=== PATIENT | female | born 1975 | race Caucasian/White ===

== ENCOUNTER 2018-03-01 18:31 | Observation (INO) | payer BC ==
[2018-03-01] MEDS ORDERED: NS 0.9% 1000 ML* 1,000 ML IV ONE ×2 (19:54→22:39)
[2018-03-01] MEDS ORDERED: Morphine INJ* 4 MG/ML 1 ML SYRINGE (NEW SYRINGE VERSION) IV ONE ×2 (19:54→21:52)
[2018-03-01 20:35] LABS: Urine Appearance Clear; Urine Blood 1+ (Negative); Urine Color Yellow; Urine Ketones Negative (Negative); Urine Protein Negative (Negative); Urine Red Blood Cell Trace(0-2/hpf) (Absent); Urine Specific Gravity 1.008 (1.010-1.030); Urine Urobilinogen Negative (Negative); Urine White Blood Cell Trace(0-5/hpf) (Absent)
[2018-03-01 20:41] LABS: ABS Basophils 0 10^3/ul (0-0.2); ABS Eosinophils 0.1 10^3/ul (0-0.6); ABS Lymphocytes 1.5 10^3/ul (1.0-4.8); ABS Monocytes 0.6 10^3/ul (0-0.8); ABS Neutrophils 7.4 10^3/ul (1.5-7.7); ABS Nucleated RBC 0 10^3/ul; Eosinophil % 0.6 % (0-6); Hematocrit 38 % (35-47); Lymphocyte % 15.5 % (25-47); Mean Corpuscular HGB Conc 34 g/dl (31-36); Mean Corpuscular Hemoglobin 30 pg (27-31); Mean Corpuscular Volume 87 fL (80-97); Mean Platelet Volume 7.6 um3 (7.4-10.4); Nucleated Red Blood Cells % 0; Platelet Count 203 10^3/ul (150-450); Red Blood Count 4.35 10^6/ul (4.00-5.40); Red Cell Distribution Width 12 % (10.5-15); White Blood Count 9.7 10^3/ul (3.5-10.8)
[2018-03-01 20:57] LABS: EGFR Non-African American 118.7 (>60)
[2018-03-01] MEDS ORDERED: Iohexol 300* (CONTRAST) 10 ML SDV IV ONE (21:14)
--- NOTE | 2018-03-01 22:31 | RAD ---
Indication: Right lower quadrant pain. Contrast: Administered 87.0 ml of OMNIPAQUE 300 mg/ml CT of the abdomen and pelvis was performed after oral and IV contrast administration. Coronal and sagittal reconstructed images were obtained. Comparison is made with previous exam dated January 24, 2009 The lung bases demonstrate no pleural fluid, nodules or masses. Heart is of normal size without evidence of pericardial effusion. A sebaceous cyst is noted in the dorsal soft tissue. Liver is normal in size. No focal lesions or intrahepatic duct dilatation is noted. Common duct is not dilated. The gallbladder demonstrates no calcified gallstones, pericholecystic fluid or wall thickening. Pancreas demonstrates no mass or pancreatic ductal dilatation. Spleen is normal in size. No adrenal masses are noted. The kidneys demonstrate symmetric nephrograms without focal lesions. The retroperitoneal lymphadenopathy is noted. No dilated loops of bowel are noted. Aorta and inferior vena cava are unremarkable. In the right colon there is infiltration of fat on the antimesenteric surface of the pericolonic fat. This is most suggestive of epiploic appendagitis or omental infarct. The appendix is visualized and is normal. No dilated loops of bowel are noted. The urinary bladder is unremarkable. No hernias are noted. A trace amount of fluid is noted surrounding the appendix. The urinary bladder is otherwise unremarkable. The bony structures are grossly unremarkable. IMPRESSION: Infiltration of fat on the antimesenteric surface of the right colon consistent with omental infarct or epiploic appendagitis. This is usually a self-limiting process. The appendix is visualized and appears to be of normal caliber.
[2018-03-01] MEDS ORDERED: HYDROmorphone INJ1* 1 MG/ML SYRINGE IV SLOW PU ONE (23:00)
--- NOTE | 2018-03-02 00:24 | RAD ---
EXAM: US Pelvis, Transvaginal EXAM DATE/TIME: 03/01/2018 11:49 PM CLINICAL HISTORY: 42 years old, female; Pain; Pelvic pain; Additional info: Ovarian torsion? TECHNIQUE: Real-time transvaginal pelvic ultrasound with image documentation. Transvaginal imaging was used for better evaluation of the endometrium and adnexa. COMPARISON: A/P W CT ABD/PEL W 03/01/2018 9:59 PM FINDINGS: Uterus/cervix: Anteverted anteflexed. Measures 7.6 x 5.1 x 3.7 cm (75 cc). No myometrial masses. Early proliferative phase endometrium measuring 0.4 cm. Right adnexa: Right ovary measures 2.3 x 2.2 x 1.5 cm (4 cc). Normal size and echogenicity with no masses. Normal follicles. Normal arterial and venous waveforms. Left adnexa: Left ovary measures 2.9 x 2.0 x 1.3 cm (4 cc). Normal size and echogenicity with no masses. Normal follicles. Normal arterial and venous waveforms. Free fluid: None. Bladder: Empty bladder. Bladder cannot be evaluated with this probe. IMPRESSION: Sonographically normal uterus and ovaries. No ovarian torsion. To contact [facility] with a general question: [facility] - [phone] For direct physician to physician contact: Physician Hotline - [phone] [facility] ([facility] Facility ID #[id number])
[2018-03-02] MEDS ORDERED: HYDROmorphone INJ1* 1 MG/ML SYRINGE IV SLOW PU ONE (01:09)
--- NOTE | 2018-03-02 01:09 | ED ---
Abdominal Pain/Female - HPI Summary HPI Summary: Patient is a 42-year-old female presenting to the ED with RLQ pain which began approximately 2 days ago. She states she feels the pain is worsening. Denies any nausea, vomiting, diarrhea, constipation. She has never had this type of pain in the past. History of ovarian cysts or kidney stones. She denied any pain to the bilateral flanks until after arrival into the ED. Now complaining of right flank and RLQ pain without radiation otherwise. She denies any fevers , sweats, chills. Pain is a 9/10, constant and stabbing. Denies any weakness in the bilateral extremities. No chance of . No abnormal vaginal discharge or bleeding. - History of Current Complaint Chief Complaint: EDAbdPain Stated Complaint: ABD PAIN LOWER RIGHT QUAD Time Seen by Provider: 03/01/18 18:36 Hx Obtained From: Patient ?: No Onset/Duration: Sudden Onset Timing: Constant Severity Initially: Severe Severity Currently: Severe Pain Intensity: 9 Pain Scale Used: 0-10 Numeric Location: Discrete At: RLQ Radiates: No Character: Sharp Aggravating Factor(s): Nothing Alleviating Factor(s): Nothing Associated Signs and Symptoms: Negative: Diaphoresis, Fever, Cough, Constipation , Blood in Stool, Urinary Symptoms, Nausea, Vomiting, Diarrhea - Risk Factors Ectopic Risk Factor: Negative Ovarian Torsion Risk Factor: Negative Allergies/Adverse Reactions: Allergies Allergy/AdvReac Type Severity Reaction Status Date / Time No Known Allergies Allergy Verified 03/07/15 08:18 Home Medications: Home Medications diphenhydrAMINE HCl [Sleep Aid] 50 mg PO BEDTIME 03/02/18 [History Confirmed ] raNITIdine HCl [Ranitidine HCl] 150 mg PO DAILY 03/02/18 [History Confirmed ] PMH/Surg Hx/FS Hx/Imm Hx Previously Healthy: Yes Endocrine/Hematology History: Denies: Hx Diabetes Cardiovascular History: Denies: Hx Hypertension, Hx Pacemaker/ICD Respiratory History: Denies: Hx Asthma Sensory History: Denies: Hx Hearing Aid Psychiatric History: Denies: Hx Panic Disorder - Surgical History Surgery Procedure, Year, and Place: BILATERAL AUGMENTATION '07; 2 C-SECTIONS 05 & 07; SINUS '; LABRAL HIP REPAIR; ABDOMINALPLASTY '; - Immunization History Hx Pertussis Vaccination: No Immunizations Up to Date: Yes Infectious Disease History: No Infectious Disease History: Denies: Traveled Outside the [place] in Last 30 Days - Social History Occupation: Employed Full-time Lives: With Family Alcohol Use: None Hx Substance Use: No Substance Use Type: Reports: None Hx Tobacco Use: No Smoking Status (MU): Never Smoked Tobacco Review of Systems - ROS Summary Review of Systems Summary: Patient name and doesn't work we another other concerns Constitutional: Negative Negative: Fever, Chills, Fatigue, Skin Diaphoresis Negative: Palpitations, Chest Pain Negative: Shortness Of Breath, Cough Positive: Abdominal Pain. Negative: Vomiting, Diarrhea, Nausea - , Genitourinary: Negative Positive: no symptoms reported, see HPI Negative: Arthralgia, Myalgia All Other Systems Reviewed And Are Negative: Yes Physical Exam Triage Information Reviewed: Yes Vital Signs On Initial Exam: Initial Vitals Temp Pulse Resp BP Pulse Ox 99.5 F 103 18 122/88 100 03/01/18 18:39 03/01/18 18:39 03/01/18 18:39 03/01/18 18:39 03/01/18 18:39 Vital Signs Reviewed: Yes Appearance: Positive: Well-Appearing, Well-Nourished Skin: Positive: Warm, Skin Color Reflects Adequate Perfusion Head/Face: Positive: Normal Head/Face Inspection Eyes: Positive: EOMI, LUIS, Conjunctiva Clear Neck: Positive: Supple, No Lymphadenopathy Respiratory/Lung Sounds: Positive: Clear to Auscultation, Breath Sounds Present Cardiovascular: Positive: RRR, Pulses are Symmetrical in both Upper and Lower Extremities Abdomen Description: Positive: McBur[place]'s Point Tenderness. Negative: CVA Tenderness (R), CVA Tenderness (L) Neurological: Positive: Sensory/Motor Intact, Alert, Oriented to Person Place, Time Psychiatric: Positive: Normal, Affect/Mood Appropriate AVPU Assessment: Alert Diagnostics - Vital Signs Vital Signs Temp Pulse Resp BP Pulse Ox 03/02/18 00:15 98.9 F 100 16 129/79 99 03/01/18 23:09 16 03/01/18 22:38 98.1 F 120 16 154/87 97 03/01/18 22:07 22 03/01/18 20:14 20 03/01/18 18:39 99.5 F 103 18 122/88 100 - Laboratory Lab Results: Lab Results 1003/01/18 03/01/18 Range/Units 20:25 20:30 20:30 WBC 9.7 (3.5-10.8) 10^3/ul RBC 4.35 (4.00-5.40) 10^6/ul Hgb 13.0 (12.0-16.0) g/dl Hct 38 (35-47) % MCV 87 (80-97) fL MCH 30 (27-31) pg MCHC 34 (31-36) g/dl RDW 12 (10.5-15) % Plt Count 203 (150-450) 10^3/ul MPV 7.6 (7.4-10.4) um3 Neut % (Auto) 77.2 (38-83) % Lymph % (Auto) 15.5 L (25-47) % Sevier % (Auto) 6.4 (0-7) % Eos % (Auto) 0.6 (0-6) % Baso % (Auto) 0.3 (0-2) % Absolute Neuts (auto) 7.4 (1.5-7.7) 10^3/ul Absolute Lymphs (auto) 1.5 (1.0-4.8) 10^3/ul Absolute Monos (auto) 0.6 (0-0.8) 10^3/ul Absolute Eos (auto) 0.1 (0-0.6) 10^3/ul Absolute Basos (auto) 0 (0-0.2) 10^3/ul Absolute Nucleated RBC 0 10^3/ul Nucleated RBC % 0 Sodium 137 (135-145) mmol/L Potassium 3.8 (3.5-5.0) mmol/L Chloride 105 (101-111) mmol/L Carbon Dioxide 26 (22-32) mmol/L Anion Gap 6 (2-11) mmol/L BUN 7 (6-24) mg/dL Creatinine 0.56 (0.51-0.95) mg/dL Est GFR ( Amer) 143.6 (>60) Est GFR (Non-Af Amer) 118.7 (>60) BUN/Creatinine Ratio 12.5 (8-20) Glucose 120 H (70-100) mg/dL Lactic Acid (0.5-2.0) mmol/L Calcium 8.9 (8.6-10.3) mg/dL Magnesium 1.8 L (1.9-2.7) mg/dL Total Bilirubin 0.40 (0.2-1.0) mg/dL AST 14 (13-39) U/L ALT 24 (7-52) U/L Alkaline Phosphatase 94 (34-104) U/L C-Reactive Protein 40.61 H (<8.01) mg/L Total Protein 7.0 (6.4-8.9) g/dL Albumin 4.5 (3.2-5.2) g/dL Globulin 2.5 (2-4) g/dL Albumin/Globulin Ratio 1.8 (1-3) Lipase 66 (11.0-82.0) U/L Beta HCG, Quant < 0.60 mIU/mL Urine Color Yellow Urine Appearance Clear Urine pH 7.0 (5-9) Ur Specific Elgin 1.008 L (1.010-1.030) Urine Protein Negative (Negative) Urine Ketones Negative (Negative) Urine Blood 1+ A (Negative) Urine Nitrate Negative (Negative) Urine Bilirubin Negative (Negative) Urine Urobilinogen Negative (Negative) Ur Leukocyte Esterase Negative (Negative) Urine WBC (Auto) Trace(0-5/hpf) (Absent) Urine RBC (Auto) Trace(0-2/hpf) (Absent) Ur Squamous Epith Cells Present A (Absent) Urine Bacteria 1+ A (Absent) Urine Glucose Negative (Negative) 03/01/18 Range/Units 20:30 WBC (3.5-10.8) 10^3/ul RBC (4.00-5.40) 10^6/ul Hgb (12.0-16.0) g/dl Hct (35-47) % MCV (80-97) fL MCH (27-31) pg MCHC (31-36) g/dl RDW (10.5-15) % Plt Count (150-450) 10^3/ul MPV (7.4-10.4) um3 Neut % (Auto) (38-83) % Lymph % (Auto) (25-47) % Sevier % (Auto) (0-7) % Eos % (Auto) (0-6) % Baso % (Auto) (0-2) % Absolute Neuts (auto) (1.5-7.7) 10^3/ul Absolute Lymphs (auto) (1.0-4.8) 10^3/ul Absolute Monos (auto) (0-0.8) 10^3/ul Absolute Eos (auto) (0-0.6) 10^3/ul Absolute Basos (auto) (0-0.2) 10^3/ul Absolute Nucleated RBC 10^3/ul Nucleated RBC % Sodium (135-145) mmol/L Potassium (3.5-5.0) mmol/L Chloride (101-111) mmol/L Carbon Dioxide (22-32) mmol/L Anion Gap (2-11) mmol/L BUN (6-24) mg/dL Creatinine (0.51-0.95) mg/dL Est GFR ( Amer) (>60) Est GFR (Non-Af Amer) (>60) BUN/Creatinine Ratio (8-20) Glucose (70-100) mg/dL Lactic Acid 1.2 (0.5-2.0) mmol/L Calcium (8.6-10.3) mg/dL Magnesium (1.9-2.7) mg/dL Total Bilirubin (0.2-1.0) mg/dL AST (13-39) U/L ALT (7-52) U/L Alkaline Phosphatase (34-104) U/L C-Reactive Protein (<8.01) mg/L Total Protein (6.4-8.9) g/dL Albumin (3.2-5.2) g/dL Globulin (2-4) g/dL Albumin/Globulin Ratio (1-3) Lipase (11.0-82.0) U/L Beta HCG, Quant mIU/mL Urine Color Urine Appearance Urine pH (5-9) Ur Specific Elgin (1.010-1.030) Urine Protein (Negative) Urine Ketones (Negative) Urine Blood (Negative) Urine Nitrate (Negative) Urine Bilirubin (Negative) Urine Urobilinogen (Negative) Ur Leukocyte Esterase (Negative) Urine WBC (Auto) (Absent) Urine RBC (Auto) (Absent) Ur Squamous Epith Cells (Absent) Urine Bacteria (Absent) Urine Glucose (Negative) Result Diagrams: 03/01/18 20:30 03/01/18 20:30 Lab Statement: Any lab studies that have been ordered have been reviewed, and results considered in the medical decision making process. Abdominal Pain Fem Course/Dx - Course Course Of Treatment: During the course of treatment, the patient is given a total of 16 mg of morphine over the course of approximately one hour with minimal relief. She states the stabbing pain was reduced, however the dull ache remained. After such, she is given 1 mg Dilaudid with moderate amount of relief. No antiemetics were given. CT abdomen and pelvis obtained: IMPRESSION : Infiltration of fat on the antimesenteric surface of the right colon. consistent with omental infarct or epiploic appendagitis. This is usually a self -limiting. process. The appendix is visualized and appears to be of normal caliber. Patient continues to complain of severe pain to the RLQ and is unable to lie flat. I am unable to rule out an ovarian origin. Ultrasound is ordered. IMPRESSION: Sonographically normal uterus and ovaries. No ovarian torsion. UA negative and no CVA tenderness bilaterally. At this point I am unable to get the patient's pain under control. Discussed case with Dr. Salgado who agrees to see patient in the ED. She will be admitted for intractable pain. - Diagnoses Differential Diagnosis: Positive: Appendicitis, Ectopic , Renal Colic Provider Diagnoses: Epiploic appendagitis Discharge - Sign-Out/Discharge Documenting (check all that apply): Patient Departure - Discharge Plan Condition: Fair Disposition: ADMITTED TO [facility] Referrals: Nawaf Miller MD [Primary Care Provider] - - Billing Disposition and Condition Condition: FAIR Disposition: Admitted to [facility]
[2018-03-02] MEDS ORDERED: HYDROmorphone INJ* 1 MG/ML CARPUJECT SYRINGE IV SLOW PU PRN (02:02)
[2018-03-02] MEDS ORDERED: NS 0.9% 1000 ML* 1,000 ML IV SCH (02:15)
[2018-03-02] MEDS ORDERED: Magnesium Sulfate 2 GM IV* 2 GM/50 ML BAG IVPB ONE (02:33)
[2018-03-02] MEDS: Acetaminophen TAB* 325 MG PO PRN (03:38)
[2018-03-02] MEDS ORDERED: Al Hydrox/Mg Hydrox/Simet LIQ* 30 ML UDC PO PRN (04:49)
[2018-03-02] MEDS: Famotidine TAB* 20 MG PO SCH ×3 (04:54→20:55)
--- NOTE | 2018-03-02 06:25 | HP ---
CC: Dr. Nawfa Miller HISTORY AND PHYSICAL: DATE OF ADMISSION: 03/02/18 TIME OF EVALUATION: 1:55 a.m. PRIMARY CARE PROVIDER: Dr. Nawaf Miller. CHIEF COMPLAINT: Abdominal pain. HISTORY OF PRESENT ILLNESS: Ms. Aleman is a 42-year-old lady with a past medical history of GERD that presented to the emergency room with complaints of right lower quadrant pain. She states she was in her usual state of health and yesterday around 5 in the morning when she woke up to come to work, she started to have some right lower quadrant pain. 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 As the pain continued to be severe and also due to the location, she was concerned of appendicitis. So, she came to the emergency room for further evaluation. She denies fever, chills, nausea, vomiting, diarrhea. She is constipated, but this is not unusual for her. She describes the pain as a sharp 8/10 in the right lower quadrant and earlier today, there was some radiation to the right flank, but this is now improved. In the emergency room, she received 2 doses of morphine 8 mg and 2 doses of Dilaudid 1 mg and as the pain was so severe, the hospitalist service was consulted for admission for intractable abdominal pain. PAST MEDICAL HISTORY: 1. GERD. 2. Seasonal allergies. PAST SURGICAL HISTORY: 1. Status post 2 C-sections. 2. Status post abdominoplasty. MEDICATIONS: 1. Ranitidine 150 mg p.o. daily. 2. Benadryl 50 mg p.o. at bedtime. ALLERGIES: No known drug allergies. FAMILY HISTORY: Mother has a history of hypertension. SOCIAL HISTORY: No history of drug or tobacco use. 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 Surrogate decision maker is her , Ham Aleman, phone number is [phone]. PHYSICAL EXAMINATION GENERAL: The patient is a young lady, lying in bed, in no acute distress. VITAL SIGNS: Temperature 98.9, heart rate is 100, respiratory rate is 16, oxygen saturation 99% on room air, blood pressure is 129/79. CHEST: Breath sounds present bilaterally with no added sounds. CVS: Normal S1, S2. Regular rate and rhythm. ABDOMEN: Soft with moderate tenderness in the right lower quadrant. No guarding, no rebound. Bowel sounds are present, but this examination was done after the patient received considerable amount of pain medication. EXTREMITIES: No edema. NEUROLOGIC: She is alert and oriented x3, able to move all 4 extremities. DIAGNOSTIC STUDIES/LAB DATA: The patient had a CBC that showed a WBC of 9.7, hemoglobin of 13, hematocrit of 38, platelets of 283 with 77% neutrophils. Chemistry showed a sodium of 137, potassium 3.8, chloride of 105, bicarb of 26, BUN of 7, creatinine 0.5, glucose of 120, lactic acid of 1.2, calcium of 8.9, magnesium of 1.8. LFTs were normal. CRP is 40. HCG was less than 0.6. Lipase 66. Urinalysis showed 1+ blood, squamous epithelial cells (the patient is having her period). CT of the abdomen and pelvis with contrast showed infiltration of fat on the antimesenteric surface of the right colon consistent with omental infarct or epiploic appendagitis. This is usually a self-limiting process. The appendix is visualized. It appears to be of normal caliber. Transvaginal ultrasound showed sonographically normal uterus and ovaries. No ovarian torsion. ASSESSMENT AND PLAN: Ms. Aleman is a 42-year-old lady with a past medical history of gastroesophageal reflux disease that presented to the emergency room with complaints of severe abdominal pain, found to have omental infarct. 1. Abdominal pain. The etiology at this point appears to be an omental infarct. The patient did have some radiation of the pain to her flank and some blood in the urine, but she is having her period. If her pain persists, we could do a renal ultrasound to look for kidney stones, but at this point, the etiology of her pain appears to be the omental infarct. She will be admitted as an observation to the medical floor and we are going to continue pain management. Although her pain is severe, the omental infarcts are usually benign and self-limited condition. So, we are going to provide symptomatic treatment to get her through it. The patient is tachycardic likely secondary to pain. She has no other signs of infection, but we will continue to monitor. 2. Gastroesophageal reflux disease. We will continue H2 swati. 3. DVT prophylaxis. The patient has a score of 1 on DVT Prophylaxis Risk Assessment Guide and she will have SCDs. 4. Code status is full. TIME SPENT: Approximately 35 minutes was spent with the patient in interview, medical records review, physical examination to complete this admission; more than half this time was spent [id number] with the patient in coordination of care. [id number]/CPS #: [id number] DESHAWN
[2018-03-02] MEDS: HYDROmorphone INJ1* 1 MG/ML SYRINGE IV SLOW PU PRN ×5 (06:31→23:38)
[2018-03-02] MEDS: Ondansetron INJ* 2 MG/ML VIAL IV PRN ×5 (06:39→23:38)
[2018-03-02 07:06] LABS: ABS Basophils 0 10^3/ul (0-0.2); ABS Eosinophils 0 10^3/ul (0-0.6); ABS Lymphocytes 1.2 10^3/ul (1.0-4.8); ABS Monocytes 0.6 10^3/ul (0-0.8); ABS Neutrophils 6.1 10^3/ul (1.5-7.7); ABS Nucleated RBC 0 10^3/ul; Eosinophil % 0.4 % (0-6); Hematocrit 33 % (35-47); Hemoglobin 11.5 g/dl (12.0-16.0); Lymphocyte % 15.5 % (25-47); Mean Corpuscular HGB Conc 35 g/dl (31-36); Mean Corpuscular Hemoglobin 30 pg (27-31); Mean Corpuscular Volume 86 fL (80-97); Mean Platelet Volume 7.5 um3 (7.4-10.4); Nucleated Red Blood Cells % 0.1; Platelet Count 166 10^3/ul (150-450); Red Blood Count 3.82 10^6/ul (4.00-5.40); Red Cell Distribution Width 12 % (10.5-15)
[2018-03-02] MEDS ORDERED: Ketorolac INJ* 30 MG/ML 1 ML VIAL IV PUSH ONE (11:00)
--- NOTE | 2018-03-02 11:13 | PN ---
Subjective Date of Service: 03/02/18 Interval History: continues to c/o point tenderness of RLQ , denies pain in any other location, does report nausea, denies vomiting. Denies chest pain or shortness of breath. Denies diarrhea. Family History: Unchanged from Admission Social History: Unchanged from Admission Past Medical History: Unchanged from Admission Objective Active Medications: Acetaminophen (Tylenol Tab*) 650 mg PO Q6H PRN PRN Reason: pain/fever Last Admin: 03/02/18 03:38 Dose: 650 mg Al Hydrox/Mg Hydrox/Simethicone (Maalox Plus*) 30 ml PO Q6H PRN PRN Reason: HEARTBURN Famotidine (Pepcid Tab*) 20 mg PO BEDTIME [facility] Last Admin: 03/02/18 05:12 Dose: 20 mg Hydromorphone HCl (Dilaudid Inj1s*) 1 mg IV SLOW PU Q4H PRN PRN Reason: SEVERE PAIN Last Admin: 03/02/18 10:58 Dose: 1 mg Sodium Chloride (Ns 0.9% 1000 Ml*) 1,000 mls @ 125 mls/hr IV PER RATE [facility] Last Admin: 03/02/18 03:26 Dose: 125 mls/hr Ondansetron HCl (Zofran Inj*) 4 mg IV Q4H PRN PRN Reason: NAUSEA Vital Signs - 8 hr 03/02/18 03/02/18 03/02/18 03:11 06:31 07:31 Temperature 97.9 F Pulse Rate 105 Respiratory 20 23 18 Rate Blood Pressure 123/69 (mmHg) O2 Sat by Pulse 99 Oximetry 03/02/18 03/02/18 07:35 10:58 Temperature 97.5 F Pulse Rate 83 Respiratory 18 16 Rate Blood Pressure 113/46 (mmHg) O2 Sat by Pulse 100 Oximetry Oxygen Devices in Use Now: None Appearance: appears uncomfortable resting in bed , alert Eyes: No Scleral Icterus Ears/Nose/Mouth/Throat: Clear Oropharnyx, Mucous Membranes Moist Neck: NL Appearance and Movements; NL JVP, Trachea Midline Respiratory: Symmetrical Chest Expansion and Respiratory Effort, Clear to Auscultation Cardiovascular: NL Sounds; No Murmurs; No JVD, No Edema Abdominal: - - point tenderness noted to RLQ , aching, pain, BS + x 4 , abd soft to palpation . Extremities: No Edema, No Clubbing, Cyanosis Skin: No Rash or Ulcers Neurological: Alert and Oriented x 3 Nutrition: Taking PO's Result Diagrams: 03/02/18 06:53 03/02/18 06:53 Additional Lab and Data: Lab Results 03/01/18 03/01/18 03/01/18 Range/Units 20:25 20:30 20:30 WBC 9.7 (3.5-10.8) 10^3/ul RBC 4.35 (4.00-5.40) 10^6/ul Hgb 13.0 (12.0-16.0) g/dl Hct 38 (35-47) % MCV 87 (80-97) fL MCH 30 (27-31) pg MCHC 34 (31-36) g/dl RDW 12 (10.5-15) % Plt Count 203 (150-450) 10^3/ul MPV 7.6 (7.4-10.4) um3 Neut % (Auto) 77.2 (38-83) % Lymph % (Auto) 15.5 L (25-47) % [place] % (Auto) 6.4 (0-7) % Eos % (Auto) 0.6 (0-6) % Baso % (Auto) 0.3 (0-2) % Absolute Neuts (auto) 7.4 (1.5-7.7) 10^3/ul Absolute Lymphs (auto) 1.5 (1.0-4.8) 10^3/ul Absolute Monos (auto) 0.6 (0-0.8) 10^3/ul Absolute Eos (auto) 0.1 (0-0.6) 10^3/ul Absolute Basos (auto) 0 (0-0.2) 10^3/ul Absolute Nucleated RBC 0 10^3/ul Nucleated RBC % 0 Sodium 137 (135-145) mmol/L Potassium 3.8 (3.5-5.0) mmol/L Chloride 105 (101-111) mmol/L Carbon Dioxide 26 (22-32) mmol/L Anion Gap 6 (2-11) mmol/L BUN 7 (6-24) mg/dL Creatinine 0.56 (0.51-0.95) mg/dL Est GFR ( Amer) 143.6 (>60) Est GFR (Non-Af Amer) 118.7 (>60) BUN/Creatinine Ratio 12.5 (8-20) Glucose 120 H (70-100) mg/dL Lactic Acid (0.5-2.0) mmol/L Calcium 8.9 (8.6-10.3) mg/dL Magnesium 1.8 L (1.9-2.7) mg/dL Total Bilirubin 0.40 (0.2-1.0) mg/dL AST 14 (13-39) U/L ALT 24 (7-52) U/L Alkaline Phosphatase 94 (34-104) U/L C-Reactive Protein 40.61 H (<8.01) mg/L Total Protein 7.0 (6.4-8.9) g/dL Albumin 4.5 (3.2-5.2) g/dL Globulin 2.5 (2-4) g/dL Albumin/Globulin Ratio 1.8 (1-3) Lipase 66 (11.0-82.0) U/L Beta HCG, Quant < 0.60 mIU/mL Urine Color Yellow Urine Appearance Clear Urine pH 7.0 (5-9) Ur Specific [place] 1.008 L (1.010-1.030) Urine Protein Negative (Negative) Urine Ketones Negative (Negative) Urine Blood 1+ A (Negative) Urine Nitrate Negative (Negative) Urine Bilirubin Negative (Negative) Urine Urobilinogen Negative (Negative) Ur Leukocyte Esterase Negative (Negative) Urine WBC (Auto) Trace(0-5/hpf) (Absent) Urine RBC (Auto) Trace(0-2/hpf) (Absent) Ur Squamous Epith Cells Present A (Absent) Urine Bacteria 1+ A (Absent) Urine Glucose Negative (Negative) 03/01/18 Range/Units 20:30 WBC (3.5-10.8) 10^3/ul RBC (4.00-5.40) 10^6/ul Hgb (12.0-16.0) g/dl Hct (35-47) % MCV (80-97) fL MCH (27-31) pg MCHC (31-36) g/dl RDW (10.5-15) % Plt Count (150-450) 10^3/ul MPV (7.4-10.4) um3 Neut % (Auto) (38-83) % Lymph % (Auto) (25-47) % [place] % (Auto) (0-7) % Eos % (Auto) (0-6) % Baso % (Auto) (0-2) % Absolute Neuts (auto) (1.5-7.7) 10^3/ul Absolute Lymphs (auto) (1.0-4.8) 10^3/ul Absolute Monos (auto) (0-0.8) 10^3/ul Absolute Eos (auto) (0-0.6) 10^3/ul Absolute Basos (auto) (0-0.2) 10^3/ul Absolute Nucleated RBC 10^3/ul Nucleated RBC % Sodium (135-145) mmol/L Potassium (3.5-5.0) mmol/L Chloride (101-111) mmol/L Carbon Dioxide (22-32) mmol/L Anion Gap (2-11) mmol/L BUN (6-24) mg/dL Creatinine (0.51-0.95) mg/dL Est GFR ( Amer) (>60) Est GFR (Non-Af Amer) (>60) BUN/Creatinine Ratio (8-20) Glucose (70-100) mg/dL Lactic Acid 1.2 (0.5-2.0) mmol/L Calcium (8.6-10.3) mg/dL Magnesium (1.9-2.7) mg/dL Total Bilirubin (0.2-1.0) mg/dL AST (13-39) U/L ALT (7-52) U/L Alkaline Phosphatase (34-104) U/L C-Reactive Protein (<8.01) mg/L Total Protein (6.4-8.9) g/dL Albumin (3.2-5.2) g/dL Globulin (2-4) g/dL Albumin/Globulin Ratio (1-3) Lipase (11.0-82.0) U/L Beta HCG, Quant mIU/mL Urine Color Urine Appearance Urine pH (5-9) Ur Specific [place] (1.010-1.030) Urine Protein (Negative) Urine Ketones (Negative) Urine Blood (Negative) Urine Nitrate (Negative) Urine Bilirubin (Negative) Urine Urobilinogen (Negative) Ur Leukocyte Esterase (Negative) Urine WBC (Auto) (Absent) Urine RBC (Auto) (Absent) Ur Squamous Epith Cells (Absent) Urine Bacteria (Absent) Urine Glucose (Negative) Assess/Plan/Problems-Billing Assessment: Ms. Faye is a 42 y.o female that presented with RLQ , found to have omental infarct on the CT. admitted for pain control and supportive care - Patient Problems (1) Abdominal pain Current Visit: Yes Status: Acute Code(s): R10.9 - UNSPECIFIED ABDOMINAL PAIN SNOMED Code(s): 27034915 Comment: CT shows:Infiltration of fat on the antimesenteric surface of the right colon consistent with omental infarct or epiploic appendagitis. This is usually a self -limiting process. The appendix is visualized and appears to be of normal caliber. - Will give a dose of toradol to assist with pain managment - will continue hydromorphone as needed for pain - will repeat cbc and crp in the AM - continue warm pack as needed for comfort. (2) DVT prophylaxis Current Visit: Yes Status: Acute Code(s): NDK7282 - SNOMED Code(s): 369036338 Comment: ambulate (3) Full code status Current Visit: Yes Status: Acute Code(s): Z78.9 - OTHER SPECIFIED HEALTH STATUS SNOMED Code(s): 019337174 Status and Disposition: obv
[2018-03-02] MEDS: Ketorolac INJ* 30 MG/ML 1 ML VIAL IV PUSH PRN (21:01)
[2018-03-03] MEDS: HYDROmorphone INJ1* 1 MG/ML SYRINGE IV SLOW PU PRN ×2 (03:45→08:20)
[2018-03-03] MEDS: Ondansetron INJ* 2 MG/ML VIAL IV PRN ×2 (03:45→08:12)
[2018-03-03 07:04] LABS: ABS Basophils 0 10^3/ul (0-0.2); ABS Eosinophils 0.1 10^3/ul (0-0.6); ABS Lymphocytes 1.1 10^3/ul (1.0-4.8); ABS Monocytes 0.6 10^3/ul (0-0.8); ABS Neutrophils 5.4 10^3/ul (1.5-7.7); ABS Nucleated RBC 0 10^3/ul; Eosinophil % 0.9 % (0-6); Hematocrit 32 % (35-47); Hemoglobin 11.2 g/dl (12.0-16.0); Lymphocyte % 14.8 % (25-47); Mean Corpuscular HGB Conc 35 g/dl (31-36); Mean Corpuscular Hemoglobin 31 pg (27-31); Mean Corpuscular Volume 87 fL (80-97); Mean Platelet Volume 7.8 um3 (7.4-10.4); Nucleated Red Blood Cells % 0.1; Platelet Count 163 10^3/ul (150-450); Red Blood Count 3.67 10^6/ul (4.00-5.40); Red Cell Distribution Width 12 % (10.5-15); White Blood Count 7.1 10^3/ul (3.5-10.8)
[2018-03-03 07:10] LABS: EGFR Non-African American 123.8 (>60)
[2018-03-03] MEDS: Ketorolac INJ* 30 MG/ML 1 ML VIAL IV PUSH PRN (08:21)
[2018-03-03] MEDS ORDERED: oxyCODONE/Acetamin 5/325 MG* TAB PO PRN (11:16)
[2018-03-03] MEDS: Acetaminophen TAB* 325 MG PO PRN (12:26)
[2018-03-03] MEDS ORDERED: Ibuprofen TAB* 600 MG PO PRN (14:00)
--- NOTE | 2018-03-03 15:46 | PN ---
Subjective Date of Service: 03/03/18 Interval History: reports pain is much improved with Toradol. continues to have tenderness to RLQ with palpation. able to tolerate po solid foods. Denies chest pain or shortness of breath. Denies abd pain , n/v/d. denies fever or chills Family History: Unchanged from Admission Social History: Unchanged from Admission Past Medical History: Unchanged from Admission Objective Active Medications: Acetaminophen (Tylenol Tab*) 650 mg PO Q6H PRN PRN Reason: pain/fever Last Admin: 03/03/18 12:26 Dose: 650 mg Al Hydrox/Mg Hydrox/Simethicone (Maalox Plus*) 30 ml PO Q6H PRN PRN Reason: HEARTBURN Famotidine (Pepcid Tab*) 20 mg PO BEDTIME [facility] Last Admin: 03/02/18 20:55 Dose: 20 mg Ibuprofen (Motrin Tab*) 600 mg PO Q6H PRN PRN Reason: PAIN Ondansetron HCl (Zofran Inj*) 4 mg IV Q4H PRN PRN Reason: NAUSEA Last Admin: 03/03/18 08:12 Dose: 4 mg Oxycodone/Acetaminophen (Percocet 5/325 Tab*) 1 tab PO Q6H PRN PRN Reason: PAIN Last Admin: 03/03/18 12:16 Dose: 1 tab Vital Signs - 8 hr 03/03/18 03/03/18 03/03/18 07:50 08:00 08:20 Temperature 98.1 F Pulse Rate 83 Respiratory 16 18 15 Rate Blood Pressure 102/62 (mmHg) O2 Sat by Pulse 99 Oximetry 03/03/18 03/03/18 11:12 12:16 Temperature 98.2 F Pulse Rate 77 Respiratory 18 18 Rate Blood Pressure 115/73 (mmHg) O2 Sat by Pulse 100 Oximetry Oxygen Devices in Use Now: None Appearance: alert , sitting in bed , no acute distress Eyes: No Scleral Icterus Ears/Nose/Mouth/Throat: Clear Oropharnyx, Mucous Membranes Moist Neck: NL Appearance and Movements; NL JVP, Trachea Midline Respiratory: Symmetrical Chest Expansion and Respiratory Effort, Clear to Auscultation Cardiovascular: NL Sounds; No Murmurs; No JVD, No Edema Abdominal: - - NL sounds, Tenderness to RLQ, no distention , BS + x 4 Extremities: No Edema, No Clubbing, Cyanosis Skin: No Rash or Ulcers Neurological: Alert and Oriented x 3 Nutrition: Taking PO's Result Diagrams: 03/03/18 06:26 03/03/18 06:26 Additional Lab and Data: Lab Results 03/01/18 03/01/18 03/01/18 Range/Units 20:25 20:30 20:30 WBC 9.7 (3.5-10.8) 10^3/ul RBC 4.35 (4.00-5.40) 10^6/ul Hgb 13.0 (12.0-16.0) g/dl Hct 38 (35-47) % MCV 87 (80-97) fL MCH 30 (27-31) pg MCHC 34 (31-36) g/dl RDW 12 (10.5-15) % Plt Count 203 (150-450) 10^3/ul MPV 7.6 (7.4-10.4) um3 Neut % (Auto) 77.2 (38-83) % Lymph % (Auto) 15.5 L (25-47) % [place] % (Auto) 6.4 (0-7) % Eos % (Auto) 0.6 (0-6) % Baso % (Auto) 0.3 (0-2) % Absolute Neuts (auto) 7.4 (1.5-7.7) 10^3/ul Absolute Lymphs (auto) 1.5 (1.0-4.8) 10^3/ul Absolute Monos (auto) 0.6 (0-0.8) 10^3/ul Absolute Eos (auto) 0.1 (0-0.6) 10^3/ul Absolute Basos (auto) 0 (0-0.2) 10^3/ul Absolute Nucleated RBC 0 10^3/ul Nucleated RBC % 0 Sodium 137 (135-145) mmol/L Potassium 3.8 (3.5-5.0) mmol/L Chloride 105 (101-111) mmol/L Carbon Dioxide 26 (22-32) mmol/L Anion Gap 6 (2-11) mmol/L BUN 7 (6-24) mg/dL Creatinine 0.56 (0.51-0.95) mg/dL Est GFR ( Amer) 143.6 (>60) Est GFR (Non-Af Amer) 118.7 (>60) BUN/Creatinine Ratio 12.5 (8-20) Glucose 120 H (70-100) mg/dL Lactic Acid (0.5-2.0) mmol/L Calcium 8.9 (8.6-10.3) mg/dL Magnesium 1.8 L (1.9-2.7) mg/dL Total Bilirubin 0.40 (0.2-1.0) mg/dL AST 14 (13-39) U/L ALT 24 (7-52) U/L Alkaline Phosphatase 94 (34-104) U/L C-Reactive Protein 40.61 H (<8.01) mg/L Total Protein 7.0 (6.4-8.9) g/dL Albumin 4.5 (3.2-5.2) g/dL Globulin 2.5 (2-4) g/dL Albumin/Globulin Ratio 1.8 (1-3) Lipase 66 (11.0-82.0) U/L Beta HCG, Quant < 0.60 mIU/mL Urine Color Yellow Urine Appearance Clear Urine pH 7.0 (5-9) Ur Specific [place] 1.008 L (1.010-1.030) Urine Protein Negative (Negative) Urine Ketones Negative (Negative) Urine Blood 1+ A (Negative) Urine Nitrate Negative (Negative) Urine Bilirubin Negative (Negative) Urine Urobilinogen Negative (Negative) Ur Leukocyte Esterase Negative (Negative) Urine WBC (Auto) Trace(0-5/hpf) (Absent) Urine RBC (Auto) Trace(0-2/hpf) (Absent) Ur Squamous Epith Cells Present A (Absent) Urine Bacteria 1+ A (Absent) Urine Glucose Negative (Negative) 03/01/18 Range/Units 20:30 WBC (3.5-10.8) 10^3/ul RBC (4.00-5.40) 10^6/ul Hgb (12.0-16.0) g/dl Hct (35-47) % MCV (80-97) fL MCH (27-31) pg MCHC (31-36) g/dl RDW (10.5-15) % Plt Count (150-450) 10^3/ul MPV (7.4-10.4) um3 Neut % (Auto) (38-83) % Lymph % (Auto) (25-47) % [place] % (Auto) (0-7) % Eos % (Auto) (0-6) % Baso % (Auto) (0-2) % Absolute Neuts (auto) (1.5-7.7) 10^3/ul Absolute Lymphs (auto) (1.0-4.8) 10^3/ul Absolute Monos (auto) (0-0.8) 10^3/ul Absolute Eos (auto) (0-0.6) 10^3/ul Absolute Basos (auto) (0-0.2) 10^3/ul Absolute Nucleated RBC 10^3/ul Nucleated RBC % Sodium (135-145) mmol/L Potassium (3.5-5.0) mmol/L Chloride (101-111) mmol/L Carbon Dioxide (22-32) mmol/L Anion Gap (2-11) mmol/L BUN (6-24) mg/dL Creatinine (0.51-0.95) mg/dL Est GFR ( Amer) (>60) Est GFR (Non-Af Amer) (>60) BUN/Creatinine Ratio (8-20) Glucose (70-100) mg/dL Lactic Acid 1.2 (0.5-2.0) mmol/L Calcium (8.6-10.3) mg/dL Magnesium (1.9-2.7) mg/dL Total Bilirubin (0.2-1.0) mg/dL AST (13-39) U/L ALT (7-52) U/L Alkaline Phosphatase (34-104) U/L C-Reactive Protein (<8.01) mg/L Total Protein (6.4-8.9) g/dL Albumin (3.2-5.2) g/dL Globulin (2-4) g/dL Albumin/Globulin Ratio (1-3) Lipase (11.0-82.0) U/L Beta HCG, Quant mIU/mL Urine Color Urine Appearance Urine pH (5-9) Ur Specific [place] (1.010-1.030) Urine Protein (Negative) Urine Ketones (Negative) Urine Blood (Negative) Urine Nitrate (Negative) Urine Bilirubin (Negative) Urine Urobilinogen (Negative) Ur Leukocyte Esterase (Negative) Urine WBC (Auto) (Absent) Urine RBC (Auto) (Absent) Ur Squamous Epith Cells (Absent) Urine Bacteria (Absent) Urine Glucose (Negative) Microbiology and Other Data: Microbiology 03/01/18 20:25 Urine Culture - Final Urine Strep Group B Assess/Plan/Problems-Billing Assessment: Ms. Faye is a 42 y.o female that presented with RLQ , found to have omental infarct on the CT. admitted for pain control and supportive care - Patient Problems (1) Abdominal pain Status: Acute Code(s): R10.9 - UNSPECIFIED ABDOMINAL PAIN SNOMED Code(s): 22149080 Comment: CT shows:Infiltration of fat on the antimesenteric surface of the right colon consistent with omental infarct or epiploic appendagitis. This is usually a self -limiting process. The appendix is visualized and appears to be of normal caliber. - Toradol given with good relief of pain- will change to ibuprofen today - will change hydromorphone to oxycodone as needed for pain - continue warm pack as needed for comfort. (2) GERD (gastroesophageal reflux disease) Status: Acute Code(s): K21.9 - GASTRO-ESOPHAGEAL REFLUX DISEASE WITHOUT ESOPHAGITIS SNOMED Code(s): 097164207 Comment: Continue pepcid would recommend follow up with GI specialist -given the chronic history of uncontrolled GERD (3) DVT prophylaxis Status: Acute Code(s): QNU6814 - SNOMED Code(s): 625731002 Comment: ambulate (4) Full code status Status: Acute Code(s): Z78.9 - OTHER SPECIFIED HEALTH STATUS SNOMED Code(s) : 950505456 Status and Disposition: obv-discharge
[2018-03-03 16:56] VITALS: BP 112/67
--- NOTE | 2018-03-07 02:57 | DS ---
CC: Nawaf Miller MD * DISCHARGE SUMMARY: DATE OF ADMISSION: 03/02/18 DATE OF DISCHARGE: 03/03/18 PROVIDER: Herlinda Echavarria NP ATTENDING PHYSICIAN: Dr. Kavitha Newberry * (dictated by Herlinda Echavarria NP). PRIMARY DIAGNOSIS: Omental infarct. SECONDARY DIAGNOSES: 1. Gastroesophageal reflux disease. 2. Seasonal allergies. STUDIES COMPLETED WHILE IN THE HOSPITAL: She had a CT of the abdomen and pelvis on 03/01/18. Radiologist's impression: Infiltration of fat on the antimesenteric surface of the right colon consistent with omental infarct or epiploic appendagitis. This is usually self limiting process. Appendix is visualized and appears to be normal in caliber. She had a transvaginal ultrasound on 03/01/18. Radiologist's impression: Normal uterus and ovaries. No ovarian torsion. DISCHARGE MEDICATIONS: New home medications: 1. Ibuprofen 600 mg 1 tablet p.o. q.8 hours as needed for pain. 2. Zofran 4 mg p.o. q.6 hours as needed for nausea. 3. Oxycodone/acetaminophen 5/325 one tablet every 6 hours as needed for pain. I- STOP was completed. I-STOP reference number is [id number]. Continued home medications: 1. Benadryl 50 mg p.o. p.r.n. sleep. 2. Ranitidine 150 mg p.o. daily. HISTORY OF PRESENT ILLNESS AND HOSPITAL COURSE: Ms. Faye is a 42-year-old female with past medical history significant for GERD, who presented to the emergency room with complaints of right lower quadrant pain. The patient reports that she was in her usual state of health around 5 this morning. She woke up and came to work. She started having right lower quadrant pain and the pain progressively got worse throughout the day, and by the time she went home, the pain was 7/10. Due to the pain becoming severe and also the location, she was concerned about appendicitis, so she presented to the emergency room for further evaluation. She denied any nausea, vomiting, diarrhea. Denied any fever or chills. She does report being constipated, but that is not unusual for her. The patient did receive morphine and Dilaudid in the emergency room for her severe pain and we were asked to see and evaluate her for intractable abdominal pain. The patient continued on pain medications throughout her hospitalization. She was converted over to oral medications. Her pain did improve with the use of NSAIDs. She did receive Toradol and that was converted to ibuprofen with good relief of her abdominal pain. On the day of discharge, her abdominal pain has improved to a tolerable level. She is stable for discharge home. Vital signs are as follows: Temperature was 97.8, heart rate was 76, respirations 20, O2 saturation was 100%, blood pressure 112/67. DISCHARGE PLAN: Ms. Faye will be discharged back home. Activity as tolerated. 1. Abdominal pain. I suspect this is related to omental infarct. This is a self limiting process and is best treated with anti-inflammatories and if needed for severe pain, a short course of opioids. The patient will be prescribed ibuprofen 600 mg p.o. q.8 hours as needed for pain. She should take this with food. The patient was instructed of this. She will also be given a 3 -day supply of Percocet. The patient's I-STOP reference number is [id number]. She has no prior listing of narcotics. The patient should follow up with her primary care provider in 4 to 7 days for further evaluation if her pain does not subside. 2. GERD. The patient does have severe acid reflux. She is taking Pepcid at home. I recommend she continue taking her Pepcid. I have also recommended due to the severity of her acid reflux that she follow up with Gastroenterology. I have put her referral and to Dr. Mcdonough for followup for further evaluation of her severe GERD symptoms. The patient was also advised to refrain from drinking alcohol, spicy foods, sodas, and coffee as this can also irritate the stomach lining and exacerbate her reflux. The patient verbalized understanding. The patient should follow up with her primary care provider in 4 to 7 days. She should follow up with Gastroenterology in 1 month. She should return to the emergency room for any chest pain, shortness of breath , any worsening in her abdominal pain or changes in the characteristics of her abdominal pain, development of fever or chills. This was discussed with the patient. She verbalized understanding. This is a summarization of her hospitalization. If further details are needed, please obtain her entire medical record. TIME SPENT: Time spent on this discharge was 60 minutes; greater than half of that time was spent with the patient discussing discharge plans and instructions. CONDITION ON DISCHARGE: Stable. I have discussed this with my attending, Dr. Kavitha Newberry; she is in agreement with my plan. HERLINDA ECHAVARRIA, YEISON [id number]/CPS #: [id number] [facility]ITALKaity
== END 2018-03-03 18:30 | disposition home or self-care (01) ==
LOC: ED 18:31 → MED 03-02 01:55
PROVIDERS: ADMIT Internal Medicine; ATTEND Internal Medicine
DX: R10.31 Right lower quadrant pain (principal); K21.9 Gastro-esophageal reflux disease without esophagitis; J30.2 Other seasonal allergic rhinitis
CPT/HCPCS: 36415; 74177; 76830; 80048; 80053; 81003; 81015; 83605; 83690; 83735; 84702; 85025; 86140; 87077; 87086; 96361; 96365; 96375; 96376; 99284; A9270-GY; G0378; J1170; J1885; J2270; J2405; J3475; Q9967